=== PATIENT | male | born 1980 | race Hispanic/Latino ===

== ENCOUNTER → 2022-09-14 | Outpatient (CLI) | payer OTHER ==
[~2022-09-14] MED LIST: ISOVUE-300 61% 100ML VIAL As Ordered ONE; LIDOCAINE 1% MDV 20ML VIAL As Ordered ONE; PROHANCE 279.3MG/ML 5ML VIAL As Ordered ONE
== END ==
LOC: M RAD 06:27
PROVIDERS: ATTEND Physician Assistant
DX: M25.511 Pain in right shoulder (principal); S43.431A Superior glenoid labrum lesion of right shoulder, initial encounter; X58.XXXA Exposure to other specified factors, initial encounter; Y92.9 Unspecified place or not applicable
CPT/HCPCS: 23350; 73223; 77002; A9576; Q9967

== ENCOUNTER 2022-10-31 14:58 | Emergency (ER) | payer OTHER ==
[~2022-10-31] VITALS: Ht 185.4 cm; Wt 114.6 kg
[2022-10-31 14:59] VITALS: BP 134/97
[2022-10-31] MEDS ORDERED: PRAZ1CAP (15:08)
[2022-10-31] MEDS ORDERED: OLOP5DRO17 (15:08)
[2022-10-31] MEDS ORDERED: ZONI25CA13 (15:09)
[2022-10-31] MEDS ORDERED: RIZA10TA2 (15:09)
[2022-10-31] MEDS ORDERED: OFLOXACIN 0.3 % (OCUFLOX) OPTH SOL 5ML OS ONE (16:25)
[2022-10-31] MEDS ORDERED: CEPHALEXIN 500 MG CAP PO ONE (16:25)
[2022-10-31] MEDS ORDERED: OFLO5DRO OS ×2 (16:38→17:09)
[2022-10-31] MEDS ORDERED: CEPH500C PO ×2 (16:38→17:09)
[2022-10-31] MEDS ORDERED: PRED20TA PO ×2 (16:38→17:09)
== END 2022-10-31 17:14 | disposition home or self-care (01) ==
LOC: M ED 14:58
DX: H01.005 Unspecified blepharitis left lower eyelid (principal); H10.32 Unspecified acute conjunctivitis, left eye; Z79.899 Other long term (current) drug therapy